=== PATIENT | female | born 1980 | race Caucasian/White ===

== ENCOUNTER 2016-09-03 14:11 | Emergency (ER) | payer MEDICAID ==
[~2016-09-03] VITALS: Ht 165.1 cm; Wt 65.8 kg
[2016-09-03 14:11] VITALS: BP 133/83
[~2016-09-03 14:11] MED LIST: ACET-73 PO; HYDR-552 PO; MAG30ORA PO; MAGN400O4 PO; MECL25TA3 PO; MULTI INGREDIENT TP; ONDA-25 IVP; PANT40TA4 PO; SODIUM CHLORIDE IV; TEMA15CA PO; ZOLP5TAB7 PO
== END 2016-09-03 15:54 | disposition home or self-care (01) ==
LOC: ER 14:14
DX: M77.9 Enthesopathy, unspecified (principal); E11.9 Type 2 diabetes mellitus without complications; Z98.890 Other specified postprocedural states
CPT/HCPCS: 73080; 99284; A4606; Z7610